=== PATIENT | female | born 1935 | race Caucasian/White ===

== ENCOUNTER → 2019-01-05 | Outpatient (CLI) | payer OTHER ==
[2019-01-05 10:26] LABS: POTASSIUM 4.4 mmol/L (3.5-5.1)
== END ==
LOC: M.LAB 04:55
PROVIDERS: Student in an Organized Health Care Education/Training Program
DX: E11.9 Type 2 diabetes mellitus without complications (principal); E87.6 Hypokalemia

== ENCOUNTER → 2020-02-28 | Outpatient (CLI) | payer OTHER | LOC: M.LAB 14:49 | PROVIDERS: ATTEND Internal Medicine Gastroenterology | DX: Z01.812 Encounter for preprocedural laboratory examination (principal); Z11.59 Encounter for screening for other viral diseases; Z86.010 Personal history of colon polyps; K21.9 Gastro-esophageal reflux disease without esophagitis ==

== ENCOUNTER → 2020-03-05 | Outpatient (CLI) | payer OTHER ==
[2020-03-05 07:58] LABS: POTASSIUM 3.8 mmol/L (3.5-5.1)
== END ==
LOC: M.LAB 02:50
PROVIDERS: ATTEND Anesthesiology
DX: E11.9 Type 2 diabetes mellitus without complications (principal); E87.6 Hypokalemia